=== PATIENT | male | born 1965 | race Caucasian/White ===

== ENCOUNTER 2017-01-17 16:17 | Emergency (ER) | payer BC ==
[2017-01-17] MEDS ORDERED: Ciprofloxacin 0.3% Ophth Soln 2.5 ML Bottle ONE (16:45)
--- NOTE | 2017-01-17 18:23 | EDM.PDOC ---
ED HPI GENERAL MEDICAL PROBLEM - General Chief Complaint: Eye Problems Stated Complaint: pink eye Time Seen by Provider: 01/17/17 17:15 Source of Information: Reports: Patient History Limitations: Reports: No Limitations - History of Present Illness INITIAL COMMENTS - FREE TEXT/NARRATIVE: According to patient he has been having redness in his left eye since yesterday. With some drainage. But today the left eye has been painful, feels gritty with blurry vision. No sure if he has rubbed the eye. No halo around the lights. Mild headache. No nausea or vomiting. Pt's grand children had pink eye and he was around them. No fever or chills. No URI symptoms. No fever or chills. No other complaints - Related Data Allergies Allergy/AdvReac Type Severity Reaction Status Date / Time No Known Allergies Allergy Verified 01/17/17 17:23 Home Meds: Home Meds Gluc 2KCl/Chondr/William Hy/Hy Ac [Glucosamine & Chondroitin Cap] 1 ea PO DAILY 04/13 [History] Past Medical History Other HEENT History: laser surgery on both eyes Other Cardiovascular History: slow heart rate Respiratory History: Reports: None Social & Family History - Tobacco Use Smoking Status *Q: Never Smoker Second Hand Smoke Exposure: No - Alcohol Use Days Per Week of Alcohol Use: 1 Number of Drinks Per Day: 2 Total Drinks Per Week: 2 - Recreational Drug Use Recreational Drug Use: No - Living Situation & Occupation Living situation: Reports: Occupation: Employed ED ROS GENERAL - Review of Systems Review Of Systems: See Below Constitutional: Denies: Fever, Chills HEENT: Reports: Eye Discharge, Eye Pain, Vision Change. Denies: Hearing Loss, Sinus Problem, Throat Pain, Throat Swelling Respiratory: Denies: Cough, Sputum Cardiovascular: Denies: Chest Pain, Lightheadedness GI/Abdominal: Denies: Nausea, Vomiting Skin: Denies: Pruritis, Rash Neurological: Denies: Dizziness, Headache ED EXAM GENERAL W FULL EYE - Physical Exam Exam: See Below Exam Limited By: No Limitations General Appearance: Alert, WD/WN, No Apparent Distress Eye Exam: Right Eye: Conjunctival Injection (purulent drainage), Corneal Abrasion (2mm by3mm irregular abrasion in the inner lower quadrant of the cornea ) Eyelids: Right: Normal Appearance Extraocular Movements: Left: Intact Pupils: Normal Accommodation Pupillary Size: Bilateral: 2 mm Ears: Normal External Exam, Normal Canal, Hearing Grossly Normal, Normal TMs Nose: Normal Inspection, Normal Mucosa, No Blood Throat/Mouth: Normal Inspection, Normal Lips, Normal Teeth, Normal Gums, Normal Oropharynx, Normal Voice, No Airway Compromise Neck: Normal Inspection, Supple, Non-Tender, Full Range of Motion Respiratory/Chest: No Respiratory Distress, Lungs Clear, Normal Breath Sounds, No Accessory Muscle Use, Chest Non-Tender Cardiovascular: Normal Peripheral Pulses, Regular Rate, Rhythm, No Edema, No Gallop, No JVD, No Murmur, No Rub Course - Vital Signs Text/Narrative:: Pt has a small 2mm by 3mm irregular corneal abrasion in the lower inner quadrant of the eye with involvement of the visual axis slightly. Pt advised not to scratch the eyes. Wear dark sunglasses when out door. Started on cipro eye drops 2 drops every 2 hrs for the left eye. Watch for worsening tearing, blurry vision. Return to emergency room in tomorrow for recheck. Departure - Departure Time of Disposition: 17:45 Disposition: Home, Self-Care 01 Condition: fair Clinical Impression: Left corneal abrasion, Conjunctivitis - Discharge Information Instructions: Ciprofloxacin eye solution, Corneal Abrasion, [id number], Bacterial Conjunctivitis Referrals: PCP,None [Primary Care Provider] - Forms: ED Department Discharge Additional Instructions: Instill to left eye Ciprofloxacin drops every 2 hours while awake. Come back tomorrow afternoon for follow-up check-up with Dr. Serrano. Clean your eye with mild soap and water from inner cantus to outside. - Problem List & Annotations (1) Left corneal abrasion SNOMED Code(s): 71110414 Code(s): S05.02XA - INJ CONJUNCTIVA AND CORNEAL ABRASION W/O FB, LEFT EYE, INIT Status: Acute Current Visit: Yes - Problem List Review Problem List Initiated/Reviewed/Updated: Yes - Assessment/Plan Assessment:: Left corneal abrasion with conjunctivitis Plan: Pt has a small 2mm by 3mm irregular corneal abrasion in the lower inner quadrant of the eye with involvement of the visual axis slightly. Pt advised not to scratch the eyes. Wear dark sunglasses when out door. Started on cipro eye drops 2 drops every 2 hrs for the left eye. Watch for worsening tearing, blurry vision. Return to emergency room in tomorrow for recheck.
[2017-01-18 10:29] VITALS: BP 124/80
== END 2017-01-17 17:55 | disposition home or self-care (01) ==
LOC: LB.ED 16:17
DX: S05.02XA Injury of conjunctiva and corneal abrasion without foreign body, left eye, initial encounter (principal); H10.9 Unspecified conjunctivitis; X58.XXXA Exposure to other specified factors, initial encounter
CPT/HCPCS: 99283; A9270

== ENCOUNTER 2017-01-18 16:22 | Emergency (ER) | payer BC ==
--- NOTE | 2017-01-18 18:19 | EDM.PDOC ---
ED HPI GENERAL MEDICAL PROBLEM - General Stated Complaint: recheck of eye Time Seen by Provider: 01/18/17 16:25 Source of Information: Reports: Patient History Limitations: Reports: No Limitations - History of Present Illness INITIAL COMMENTS - FREE TEXT/NARRATIVE: Pt is here for followup on his left corneal abrasion from yesterday.Pt claims that he has been feeling better. hi sblurry vision and pain in the eye has resolved. but now both his eyes have turned red and draining. No fever or chills. No halo around lights. No fever or chills. Onset: Today - Related Data Allergies Allergy/AdvReac Type Severity Reaction Status Date / Time No Known Allergies Allergy Verified 01/17/17 17:23 Home Meds: Home Meds Gluc 2KCl/Chondr/William Hy/Hy Ac [Glucosamine & Chondroitin Cap] 1 ea PO DAILY 04/13 [History] Past Medical History Other HEENT History: laser surgery on both eyes Other Cardiovascular History: slow heart rate Respiratory History: Reports: None Social & Family History - Tobacco Use Smoking Status *Q: Never Smoker Second Hand Smoke Exposure: No - Alcohol Use Days Per Week of Alcohol Use: 1 Number of Drinks Per Day: 2 Total Drinks Per Week: 2 - Recreational Drug Use Recreational Drug Use: No - Living Situation & Occupation Living situation: Reports: Occupation: Employed ED ROS GENERAL - Review of Systems Review Of Systems: See Below Constitutional: Denies: Fever, Chills HEENT: Reports: Eye Discharge. Denies: Ear Discharge, Ear Pain, Eye Pain, Sinus Problem, Throat Pain, Throat Swelling, Vertigo, Vision Change Respiratory: Denies: Shortness of Breath, Cough, Sputum Cardiovascular: Denies: Chest Pain, Lightheadedness GI/Abdominal: Denies: Abdominal Pain, Diarrhea, Nausea, Vomiting : Denies: Dysuria, Flank Pain Musculoskeletal: Denies: Joint Pain, Joint Swelling Skin: Denies: Pruritis, Rash ED EXAM, GENERAL - Physical Exam Exam: See Below Exam Limited By: No Limitations General Appearance: Alert, WD/WN, No Apparent Distress Eye Exam: Right Eye: Conjunctival Injection (Both ocnjunctiva are congested and draining.), Left Eye: Corneal Abrasion (on fluroscein exam the abrasion in the left eye has almost resolved. ), Bilateral Eye: EOMI, PERRL Ears: Normal External Exam, Normal Canal, Hearing Grossly Normal, Normal TMs Ear Exam: Bilateral Ear: Auricle Normal, Canal Normal, TM normal Nose: Normal Inspection, Normal Mucosa, No Blood Throat/Mouth: Normal Inspection, Normal Lips, Normal Teeth, Normal Gums, Normal Oropharynx, Normal Voice, No Airway Compromise Head: Atraumatic, Normocephalic Neck: Normal Inspection, Supple, Non-Tender, Full Range of Motion Respiratory/Chest: No Respiratory Distress, Lungs Clear, Normal Breath Sounds, No Accessory Muscle Use, Chest Non-Tender Cardiovascular: Normal Peripheral Pulses, Regular Rate, Rhythm, No Edema, No Gallop, No JVD, No Murmur, No Rub Course - Vital Signs Text/Narrative:: The left eye corneal abrasion has definitely improved. Almost clearing up. But he has developed purulent conjunctivitis of both eyes. I have advised patient to avoid touching the eyes. Continue cipro eye drops 2 drops every 4 hrs in both eyes. I have advised him to followup in 2-3 days for recheck in clinic. Return to emergency room is symptoms worsen. Departure - Departure Time of Disposition: 17:00 Disposition: Home, Self-Care 01 Clinical Impression: Left corneal abrasion, Conjunctivitis - Discharge Information Forms: ED Summary Discharge - Problem List & Annotations (1) Left corneal abrasion SNOMED Code(s): 26334275 Code(s): S05.02XA - INJ CONJUNCTIVA AND CORNEAL ABRASION W/O FB, LEFT EYE, INIT Status: Acute Current Visit: Yes (2) Conjunctivitis SNOMED Code(s): 7222204 Code(s): H10.9 - UNSPECIFIED CONJUNCTIVITIS Status: Acute Current Visit: Yes - Problem List Review Problem List Initiated/Reviewed/Updated: Yes - Assessment/Plan Assessment:: Resolving left corneal abrasion B/l conjunctivitis Plan: The left eye corneal abrasion has definitely improved. Almost clearing up. But he has developed purulent conjunctivitis of both eyes. I have advised patient to avoid touching the eyes. Continue cipro eye drops 2 drops every 4 hrs in both eyes. I have advised him to followup in 2-3 days for recheck in clinic. Return to emergency room is symptoms worsen.
[2017-01-18 20:38] VITALS: BP 104/68
== END 2017-01-18 16:35 | disposition home or self-care (01) ==
LOC: LB.ED 16:22
DX: H10.9 Unspecified conjunctivitis (principal); S05.02XD Injury of conjunctiva and corneal abrasion without foreign body, left eye, subsequent encounter; X58.XXXA Exposure to other specified factors, initial encounter
CPT/HCPCS: 99283